=== PATIENT | male | born 1980 | race Caucasian/White ===

== ENCOUNTER → 2016-08-19 | Emergency (ER) | payer OTHER ==
[~2016-08-19] VITALS: Ht 193 cm; Wt 152.0 kg
[~2016-08-19] MED LIST: LISI10TA2
--- NOTE | 2016-08-19 17:01 | ED Upper Extremity ---
General Stated Complaint: L WRIST PAIN/TINGLING Source: patient Exam Limitations: no limitations History of Present Illness Time seen by provider: 16:59 Initial Comments To ER with volar left wrist pain and tingling. He states that he has a previous injury with surgical repair about 20 years ago following a ligamentous injury to the wrist. Today while at work at [employer] he was loading some boxes when he felt a popping sensation in his wrist and now has some tingling over the volar aspect of the wrist that has radiated proximally up the volar side of the forearm closer to the elbow throughout the course of the day today. He denies any pain in the hand no numbness or tingling of any of the fingers. Onset: this morning Severity: moderate Pain/Injury Location: left wrist Method of Injury: unknown Modifying Factors: Worse With Movement Constitutional: see HPI EENTM: see HPI Respiratory: no symptoms reported Cardiovascular: no symptoms reported Genitourinary: no symptoms reported Musculoskeletal: see HPI Skin: no symptoms reported Psychiatric/Neurological: No Symptoms Reported Past [facility] Hx Patient Social History Recent Foreign Travel: No Contact w/Someone Who Travel: No Physical Exam Vital Signs Capillary Refill : General Appearance: WD/WN, no apparent distress HEENT: PERRL/EOMI, normal ENT inspection Neck: non-tender, full range of motion Respiratory: no respiratory distress, no accessory muscle use Gastrointestinal: non tender, soft Shoulder: normal inspection, non-tender Elbow/Forearm: normal inspection, non-tender Hand: Left (there is no ecchymosis abrasion erythema or swelling or deformity. There is an old healed scar over the carpal tunnel region to the volar side of the wrist) Neurologic/Psychiatric: alert, normal mood/affect, oriented x 3 Skin: normal color, warm/dry Progress/Results/Core Measures Results/Orders My Orders Orders - LORI BELTRAN APRN Wrist, Left, 3 Views Or More (08/19/16 16:58) Departure Impression Impression: Primary Impression: Wrist injury Disposition: 01 HOME, SELF-CARE Condition: Stable Departure-Patient Inst. Decision time for Depature: 17:00 Referrals: [facility] (PCP) Primary Care Physician Patient Instructions: Common Wrist Injuries Add. Discharge Instructions: 1. Follow-up with occupational health and discuss with them whether or not a referral is needed to see Dr. Goodman, hand and upper extremity surgeon at [facility] 2. Wear the splint at all times except when showering until told otherwise by occupational health or orthopedics 3. Return to ER as needed LORI BELTRAN APRN Aug 19, 2016 17:01
--- NOTE | 2016-08-19 17:17 | Diagnostic Imaging Report ---
EXAMINATION: Left wrist, 3 views. COMPARISON: None. HISTORY: 36-year-old male, lifting injury. Left wrist pain. FINDINGS: There is a well-corticated ossification adjacent to the distal ulna which most likely relates to a remote prior displaced fracture through the base of the ulnar styloid which is mildly displaced. There are linear areas of radiodensity overlying the distal radius, radial soft tissues at the level of the distal radius, and near the radial aspect of the base of the first metacarpal which likely relates to areas of foreign body. Recommend correlation with history. There is no identified acute fracture. Additional bone alignment is unremarkable. The joint spaces are well preserved. There is normal bone mineralization. There is no prominent focal soft tissue swelling. IMPRESSION: 1. No identified acute bony abnormality of the left wrist. 2. Remote prior displaced fracture through the base of the ulnar styloid. Dictated by: Dictated on workstation # [id number]
[2016-08-19 17:53] VITALS: BP 187/76
== END | disposition home or self-care (01) ==
LOC: ER 16:43
DX: S69.92XA Unspecified injury of left wrist, hand and finger(s), initial encounter (principal); X50.9XXA Other and unspecified overexertion or strenuous movements or postures, initial encounter; Y99.0 Civilian activity done for income or pay
CPT/HCPCS: 73110; 99283